=== PATIENT | male | born 2000 | race Two or more races ===

== ENCOUNTER → 2024-12-01 | Outpatient (CLI) | payer BC, MEDICAID, SELFPAY ==
--- NOTE | 2024-12-01 | XR_ITS ---
Examination: Tibia-Fibula, right , 2 views Technique: Tibia-fibula AP lateral 2 views Date and time of exam: December 01, 2024 1214 hours INDICATIONS: Right leg swelling and pain beginning 2 weeks ago. FINDINGS: No acute fracture No dislocation No cortical bone destruction IMPRESSION: No acute fracture
--- NOTE | 2024-12-01 | XR_ITS ---
EXAMINATION: Ankle, right 3 views . Technique: Ankle AP, oblique, lateral 3 views Date and time of exam: December 01, 2024 1239 hours INDICATIONS: Right external ear pain beginning 2 weeks ago. FINDINGS: No fracture or dislocation. No cortical bone destruction Old bone density at the anterior superior margin of the talus IMPRESSION: No acute fracture Early osteoarthritis tibiotalar joint
== END | disposition home or self-care (01) ==
PROVIDERS: Referring Provider Nurse Practitioner Family; Visit Provider Nurse Practitioner Family
DX: M79.604 Pain in right leg (principal); M19.071 Primary osteoarthritis, right ankle and foot
CPT/HCPCS: 73590; 73610